=== PATIENT | female | born 1975 | race Caucasian/White ===

== ENCOUNTER 2019-01-07 07:31 | Day surgery (SDC) | payer BC ==
[~2019-01-07] VITALS: Ht 170.2 cm; Wt 119.3 kg
[~2019-01-07 07:31] MED LIST: CLINDAMYCIN HC150 MG PO; LISINOPRIL10 MG PO; PANTOPRAZOLE SO40 MG PO; RANITIDINE HCL150 M1 PO
[2019-01-07] MEDS ORDERED: MAGNESIUM400 M1 PO (07:51)
[2019-01-07] MEDS ORDERED: VITAMIN D35000 UNIT PO (07:51)
--- NOTE | 2019-01-07 09:47 | NUR ---
01/07/19 0947 Arabella Tuttle 0956 PT ARRIVED IN PACU WIDE AWAKE WITH NO C/O'S. OXYGEN REMOVED. SATS 96% ON RA. 0940 PT TALKING TO STAFF. DECLINED WATER WHEN OFFERED. 0945 DC INSTRUCTIONS GIVEN. ALL QUESTIONS ANSWERED.
--- NOTE | 2019-01-07 13:47 | NUR ---
PT ALERT, ORIENTED AND PLEASANT. PT'S FIRST EGD, NO QUESTIONS. SHE THANKED ME FOR COMING IN, WILL FOLLOW NEEDED
--- NOTE | 2019-01-08 06:17 | OR ---
[facility] [address], [place] [address] Signed DATE OF OPERATION: 01/07/2019 SURGEON: Santi Gtz MD PREOPERATIVE DIAGNOSES: 1. Gastroesophageal reflux disease. 2. Tiny hiatal hernia. 3. Change in voice with raspiness. 4. Proximal esophageal dysphagia. POSTOPERATIVE DIAGNOSIS: Mild gastritis. PROCEDURE PERFORMED: EGD with CLOtest and biopsies of the antrum, GE junction and midesophagus. ESTIMATED BLOOD LOSS: None. INDICATIONS: Dennis is a 43-year-old, obese female, asked to see me for her acid reflux. She has had it for at least several years. She had a barium swallow back in 2016. She had a tiny hiatal hernia at that time with massive acid reflux. She thinks that acid reflux is getting worse. She has now had a change in voice. Her voice is much raspier than before. She has been on Zantac 3 times a day and Protonix and nothing seems to be helping. She told me today that she works for the local [employer]. 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 It is quite a bit of responsibility. It may be contributing to some of her stress and acid reflux. In the office, I gave her a pamphlet on upper endoscopy. We looked at that together. We went back and reviewed her previous barium swallow from 2016. We also reviewed the need for IV conscious sedation. She understands there is risk including, but not limited to gas, bloating, crampy abdominal pain, bleeding, perforation, requiring surgery, and missed diagnosis. She expressed understanding and wished to proceed. DESCRIPTION OF PROCEDURE: Dennis was taken into our endoscopy suite and placed in the supine semi-recumbent position. The posterior oropharynx was anesthetized with lidocaine spray. A bite block was utilized for the case. The adult gastroscope was introduced and advanced under direct visualization of camera into the third portion of the duodenum without Electronically Signed By: SANTI GTZ MD 01/08/19 0617 PATIENT NAME: DENNIS ALANIS OPERATIVE REPORT DATE OF : 75 REPORT #: [id number] PHYSICIAN: SANTI GTZ MD PCP: GERTRUDE AC PAC REPORT IS CONFIDENTIAL AND NOT TO BE RELEASED WITHOUT AUTHORIZATION [facility] [address], [place] [address] Signed difficulty. She was given a total of 8 mg of Versed and 100 mcg of fentanyl to cover the case. The duodenum and pyloric channel were unremarkable. She had very mild erythematous changes throughout the whole stomach. Consequently, we took a biopsy from the antrum for CLOtest as well as pathologic review. There were no gastric or esophageal varices. No ulcerations. Upon retroflexion of the scope, I really cannot appreciate a true hiatal hernia. The scope was withdrawn up through the area of GE junction, which was compliant without stricture. She had very minimal if any disruption to the Z-line. We went ahead and took a biopsy at the Z-line and one in the mid esophagus. However, the distal mid and proximal esophagus were unremarkable. After this, the gas was suctioned out and gastroscope removed. Dennis tolerated procedure quite well. RECOMMENDATIONS: I will see Dennis back in my office in the next 7-14 days to review her results. MD WALT Dejesus/AXELL /[id number] cc: Gertrude Ac PA-C Copies: GERTRUDE AC ~ Electronically Signed By: SANTI GZT MD 01/08/19 0617 PATIENT NAME: DENNIS ALANIS OPERATIVE REPORT DATE OF : 75 REPORT #: [id number] PHYSICIAN: SANTI GTZ MD PCP: GERTRUDE AC REPORT IS CONFIDENTIAL AND NOT TO BE RELEASED WITHOUT AUTHORIZATION
== END 2019-01-07 09:50 | disposition home or self-care (01) ==
LOC: DS 07:31 → OPS 07:31 → DS 09:00 → OPS 09:50
PROVIDERS: Colon & Rectal Surgery
PROC: 0DB78ZX Excision of Stomach, Pylorus, Via Natural or Artificial Opening Endoscopic, Diagnostic (ICD-10-PCS; 2019-01-07)
PROC: 0DB28ZX Excision of Middle Esophagus, Via Natural or Artificial Opening Endoscopic, Diagnostic (ICD-10-PCS; 2019-01-07)
PROC: 0DB48ZX Excision of Esophagogastric Junction, Via Natural or Artificial Opening Endoscopic, Diagnostic (ICD-10-PCS; principal; 2019-01-07 09:00)
DX: K29.70 Gastritis, unspecified, without bleeding (principal); K31.9 Disease of stomach and duodenum, unspecified; K21.9 Gastro-esophageal reflux disease without esophagitis; E66.9 Obesity, unspecified; Z79.899 Other long term (current) drug therapy; Z88.0 Allergy status to penicillin
CPT/HCPCS: 86677; G0500; J2250; J3010; J7120